=== PATIENT | male | born 1960 | race Two or more races ===

== ENCOUNTER 2017-09-21 14:20 | Emergency (ER) | payer SELFPAY ==
--- NOTE | 2017-09-21 15:35 | NUR ---
CALLED IN [facility]- NO ANSWER
--- NOTE | 2017-09-21 15:41 | NUR ---
PT LEFT AND REFUSED TO BE SEEN AND TRIAGED
== END 2017-09-21 15:43 | disposition left against medical advice (07) ==
LOC: ER 14:22
DX: Z53.21 Procedure and treatment not carried out due to patient leaving prior to being seen by health care provider (principal)